=== PATIENT | male | born 1960 | race Caucasian/White ===

== ENCOUNTER 2020-08-16 07:19 | Emergency (ER) | payer OTHER ==
[~2020-08-16] VITALS: Ht 172.7 cm; Wt 81.6 kg
[~2020-08-16 07:19] MED LIST: ASPIRIN EC81 MG PO; HYDROCHLOROTH12.5 MG PO; LASIX40 MG PO; LEVAQUIN750 MG PO; LISINOPRIL10 MG PO; METOPROLOL SUC100 MG PO; OMNICEF 300 MG300 MG PO; TOPROL XL25 MG PO; VASOTEC 5 MG TAB5 MG PO; XARELTO10 MG PO; ZITHROMAX250 MG PO; ZOFRAN ODT 4 MG4 MG SL
[2020-08-16 08:00] LABS: HEMOGLOBIN 15.6 gm/dl (14.0-17.5); RED BLOOD COUNT 4.94 M/UL (4.20-5.50); WHITE BLOOD COUNT 8.8 K/UL (4.5-11.0)
[2020-08-16 08:18] LABS: BUN/CREATININE RATIO 19 (0-10)
== END 2020-08-17 04:45 | disposition left against medical advice (07) ==
LOC: ER1 07:19 → CDU 08:50 → ER1 08:50
PROVIDERS: Emergency Medicine
DX: U07.1 COVID-19 (principal); J12.82 Pneumonia due to coronavirus disease 2019; I11.0 Hypertensive heart disease with heart failure; I50.23 Acute on chronic systolic (congestive) heart failure; I16.0 Hypertensive urgency; I20.9 Angina pectoris, unspecified; I48.91 Unspecified atrial fibrillation; R91.8 Other nonspecific abnormal finding of lung field; F15.11 Other stimulant abuse, in remission; F11.11 Opioid abuse, in remission; F10.11 Alcohol abuse, in remission; M19.90 Unspecified osteoarthritis, unspecified site; F41.9 Anxiety disorder, unspecified; R74.01 Elevation of levels of liver transaminase levels; R79.89 Other specified abnormal findings of blood chemistry; F17.200 Nicotine dependence, unspecified, uncomplicated; Z98.890 Other specified postprocedural states; Z90.49 Acquired absence of other specified parts of digestive tract; Z96.651 Presence of right artificial knee joint; Z79.01 Long term (current) use of anticoagulants; Z87.01 Personal history of pneumonia (recurrent); Z79.899 Other long term (current) drug therapy; Z91.14 Patient's other noncompliance with medication regimen; Z53.20 Procedure and treatment not carried out because of patient's decision for unspecified reasons
CPT/HCPCS: 36415; 71045; 80053; 82550; 82553; 83874; 83880; 84484; 85025; 85610; 86900; 86901; 87040; 93005; 96374; 96375; 99285; J0456; J0696; J1940; J7030; U0002

== ENCOUNTER 2021-01-02 09:30 | Emergency (ER) | payer OTHER ==
[2021-01-02 10:42] LABS: HEMOGLOBIN 16.6 gm/dl (14.0-17.5); RED BLOOD COUNT 5.16 M/UL (4.20-5.50); WHITE BLOOD COUNT 8.4 K/UL (4.5-11.0)
[2021-01-02 12:02] LABS: BUN/CREATININE RATIO 20 (0-10)
== END 2021-01-02 19:51 | disposition home or self-care (01) ==
LOC: ER1 09:30
PROVIDERS: Physician Assistant
DX: I11.0 Hypertensive heart disease with heart failure (principal); I50.9 Heart failure, unspecified; I48.92 Unspecified atrial flutter; I42.9 Cardiomyopathy, unspecified; Z79.01 Long term (current) use of anticoagulants
CPT/HCPCS: 71046; 80053; 82550; 82553; 83690; 83874; 83880; 84484; 85025; 85379; 93005; 96374; 99285; J1940; Q9967

== ENCOUNTER → 2021-01-24 | Outpatient (CLI) | payer OTHER ==
[~2021-01-24] MED LIST changes: +ADULT LOW DOSE81 MG PO; +CARVEDILOL12.5 MG PO; +ZAROXOLYN/DIULO5 MG PO; +ZESTRIL20 MG PO
== END ==
LOC: HEART 5 09:54
DX: I48.91 Unspecified atrial fibrillation (principal); I42.9 Cardiomyopathy, unspecified; I50.22 Chronic systolic (congestive) heart failure; I25.10 Atherosclerotic heart disease of native coronary artery without angina pectoris; I08.1 Rheumatic disorders of both mitral and tricuspid valves; I27.20 Pulmonary hypertension, unspecified
CPT/HCPCS: 93306

== ENCOUNTER 2021-03-30 02:15 | Inpatient (IN) | payer OTHER ==
[~2021-03-30] VITALS: Ht 170.2 cm; Wt 81.6 kg
[~2021-03-30 02:15] MED LIST changes: -ADULT LOW DOSE81 MG PO; -CARVEDILOL12.5 MG PO; -ZAROXOLYN/DIULO5 MG PO; -ZESTRIL20 MG PO
[2021-03-30 02:53] LABS: RED BLOOD COUNT 5.94 M/UL (4.20-5.50); WHITE BLOOD COUNT 15.2 K/UL (4.5-11.0)
[2021-03-30] MEDS ORDERED: ZAROXOLYN/DIULO5 MG PO (13:07)
[2021-03-30] MEDS ORDERED: ADULT LOW DOSE81 MG PO (13:08)
[2021-03-30] MEDS ORDERED: ZESTRIL20 MG PO (13:08)
[2021-03-30] MEDS ORDERED: CARVEDILOL12.5 MG PO (13:08)
== END 2021-03-30 15:00 | disposition left against medical advice (07) | DRG 682 ==
LOC: ER1 02:15 → CDU 06:27
PROVIDERS: Physician Assistant; Student in an Organized Health Care Education/Training Program; ADMIT Internal Medicine
DX: N17.9 Acute kidney failure, unspecified (principal); I21.4 Non-ST elevation (NSTEMI) myocardial infarction; E87.2 Acidosis; I50.22 Chronic systolic (congestive) heart failure; I48.91 Unspecified atrial fibrillation; I25.5 Ischemic cardiomyopathy; Z20.822 Contact with and (suspected) exposure to COVID-19; E86.0 Dehydration; E87.6 Hypokalemia; R94.5 Abnormal results of liver function studies; F19.10 Other psychoactive substance abuse, uncomplicated; I27.20 Pulmonary hypertension, unspecified; I08.1 Rheumatic disorders of both mitral and tricuspid valves; Z96.651 Presence of right artificial knee joint; I11.0 Hypertensive heart disease with heart failure; Z95.1 Presence of aortocoronary bypass graft; Z93.3 Colostomy status; Z91.14 Patient's other noncompliance with medication regimen; Z90.49 Acquired absence of other specified parts of digestive tract; Z98.890 Other specified postprocedural states; Z82.49 Family history of ischemic heart disease and other diseases of the circulatory system; Z81.1 Family history of alcohol abuse and dependence
CPT/HCPCS: 71045; 80048; 80053; 81001; 82436; 82550; 82553; 83605; 83874; 83880; 84133; 84300; 84439; 84443; 84484; 85025; 87040; 93005; 96374; 96375; 99285; G0378; J0456; J0696; J3480; J7030; J7040; J7050; U0002

== ENCOUNTER → 2021-05-18 | Outpatient (CLI) | payer OTHER ==
[~2021-05-18] MED LIST changes: +ADULT LOW DOSE81 MG PO; +CARVEDILOL12.5 MG PO; +CLINDAMYCIN HC300 MG PO; +HYDROCODON-ACE1 EAC4 PO; +LEVOFLOXACIN500 MG PO; +ZAROXOLYN/DIULO5 MG PO; +ZESTRIL20 MG PO
[2021-05-18 13:06] LABS: HEMOGLOBIN 15.6 gm/dl (14.0-17.5); RED BLOOD COUNT 4.99 M/UL (4.20-5.50)
[2021-05-18 13:26] LABS: BUN/CREATININE RATIO 21 (0-10)
== END ==
LOC: LAB 12:03
PROVIDERS: Internal Medicine Cardiovascular Disease
DX: I11.0 Hypertensive heart disease with heart failure (principal); I42.0 Dilated cardiomyopathy; I50.22 Chronic systolic (congestive) heart failure; I25.10 Atherosclerotic heart disease of native coronary artery without angina pectoris
CPT/HCPCS: 36415; 80048; 85025

== ENCOUNTER 2021-05-19 07:05 | Outpatient (CLI) | payer OTHER ==
[~2021-05-19] VITALS: Ht 170.2 cm; Wt 82.1 kg
[~2021-05-19 07:05] MED LIST changes: -CLINDAMYCIN HC300 MG PO; -HYDROCODON-ACE1 EAC4 PO; -LEVOFLOXACIN500 MG PO
[2021-05-19] MEDS ORDERED: LASIX40 MG PO (08:07)
[2021-05-19] MEDS ORDERED: HYDROCODON-ACE1 EAC4 PO (12:11)
[2021-05-19] MEDS ORDERED: LEVOFLOXACIN500 MG PO (12:11)
[2021-05-19] MEDS ORDERED: CLINDAMYCIN HC300 MG PO ×2 (12:11→12:46)
== END 2021-05-20 13:32 | disposition home or self-care (01) ==
LOC: CATH 07:05 → MED SURG 4 12:52 → CATH 05-20 13:32
DX: I42.0 Dilated cardiomyopathy (principal); I25.10 Atherosclerotic heart disease of native coronary artery without angina pectoris; I11.0 Hypertensive heart disease with heart failure; I50.22 Chronic systolic (congestive) heart failure; I44.7 Left bundle-branch block, unspecified; Z79.899 Other long term (current) drug therapy; Z79.82 Long term (current) use of aspirin; Z86.16 Personal history of COVID-19
CPT/HCPCS: 33225; 33249; 93005; 99152; 99153; C1769; C1777; C1882; C1898; C1900; J0690; J1644; J2250; J3010; J3370; J3480; J7040; Q9965

== ENCOUNTER → 2021-05-26 | Outpatient (CLI) | payer OTHER ==
[~2021-05-26] VITALS: Ht 172.7 cm; Wt 81.6 kg
[~2021-05-26] MED LIST changes: +CLINDAMYCIN HC300 MG PO; +HYDROCODON-ACE1 EAC4 PO; +LEVOFLOXACIN500 MG PO
== END ==
LOC: OPSV 07:00
DX: L03.818 Cellulitis of other sites (principal)
CPT/HCPCS: 96365; 96366; 96367; C1751; J0878; J3370; J7050; J7070

== ENCOUNTER → 2021-05-27 | Outpatient (CLI) | payer OTHER ==
[~2021-05-27] VITALS: Ht 172.7 cm; Wt 81.6 kg
== END ==
LOC: OPSV 06:51
DX: L03.818 Cellulitis of other sites (principal)
CPT/HCPCS: 96365; 96366; 96367; J0878; J3370; J7050

== ENCOUNTER → 2021-05-28 | Outpatient (CLI) | payer OTHER ==
[~2021-05-28] VITALS: Ht 172.7 cm; Wt 81.6 kg
== END ==
LOC: OPSV 06:48
DX: L03.818 Cellulitis of other sites (principal)
CPT/HCPCS: 96365; 96366; 96367; J0878; J3370; J7050

== ENCOUNTER → 2021-05-29 | Outpatient (CLI) | payer OTHER ==
[~2021-05-29] VITALS: Ht 172.7 cm; Wt 81.6 kg
== END ==
LOC: OPSV 07:24
DX: L03.818 Cellulitis of other sites (principal)
CPT/HCPCS: 96365; 96366; 96367; J0878; J3370; J7050

== ENCOUNTER → 2021-05-30 | Outpatient (CLI) | payer OTHER ==
[~2021-05-30] VITALS: Ht 172.7 cm; Wt 81.6 kg
== END ==
LOC: OPSV 08:20
DX: L03.818 Cellulitis of other sites (principal)
CPT/HCPCS: 96365; 96366; 96367; J0878; J3370; J7050

== ENCOUNTER → 2021-05-31 | Outpatient (CLI) | payer OTHER ==
[~2021-05-31] VITALS: Ht 172.7 cm; Wt 81.6 kg
== END ==
LOC: OPSV 09:07
DX: L03.818 Cellulitis of other sites (principal); I42.0 Dilated cardiomyopathy; I48.91 Unspecified atrial fibrillation; I48.92 Unspecified atrial flutter; I11.0 Hypertensive heart disease with heart failure; I50.22 Chronic systolic (congestive) heart failure; I25.10 Atherosclerotic heart disease of native coronary artery without angina pectoris; F41.9 Anxiety disorder, unspecified; M06.9 Rheumatoid arthritis, unspecified; I25.2 Old myocardial infarction; Z95.810 Presence of automatic (implantable) cardiac defibrillator
CPT/HCPCS: 96365; 96366; 96367; J0878; J3370; J7050

== ENCOUNTER → 2021-06-01 | Outpatient (CLI) | payer OTHER ==
[~2021-06-01] VITALS: Ht 172.7 cm; Wt 81.6 kg
== END ==
LOC: OPSV 08:16
DX: L03.818 Cellulitis of other sites (principal)
CPT/HCPCS: 96365; 96366; 96367; J0878; J3370; J7050

== ENCOUNTER → 2021-10-23 | Outpatient (CLI) | payer OTHER ==
[~2021-10-23] MED LIST changes: +ZESTRIL2.5 MG PO; -ZESTRIL20 MG PO
[2021-10-23 09:04] LABS: HEMOGLOBIN 16.1 gm/dl (14.0-17.5); RED BLOOD COUNT 5.08 M/UL (4.20-5.50); WHITE BLOOD COUNT 8.6 K/UL (4.5-11.0)
== END ==
LOC: EDSTATUS 08:00 → OPSV2 08:00
PROVIDERS: Orthopaedic Surgery
DX: Z01.818 Encounter for other preprocedural examination (principal); M16.11 Unilateral primary osteoarthritis, right hip
CPT/HCPCS: 36415; 80048; 85027; 93005

== ENCOUNTER → 2021-10-30 | Outpatient (CLI) | payer OTHER ==
[2021-10-30 16:19] LABS: BUN/CREATININE RATIO 19 (0-10)
== END ==
LOC: LAB 15:24
DX: N18.9 Chronic kidney disease, unspecified (principal); R94.5 Abnormal results of liver function studies
CPT/HCPCS: 36415; 80053

== ENCOUNTER → 2021-11-28 | Outpatient (CLI) | payer OTHER ==
[~2021-11-28] MED LIST changes: +METOPROLOL SUCC50 MG PO; +VOLTAREN EC 7575 MG PO
[2021-11-28 09:20] LABS: HEMOGLOBIN 15.9 gm/dl (14.0-17.5); RED BLOOD COUNT 4.78 M/UL (4.20-5.50); WHITE BLOOD COUNT 7.6 K/UL (4.5-11.0)
== END ==
LOC: OPSV2 08:30 → EDSTATUS 08:30 → OPSV2 08:32
PROVIDERS: Orthopaedic Surgery
DX: Z01.812 Encounter for preprocedural laboratory examination (principal); M16.11 Unilateral primary osteoarthritis, right hip
CPT/HCPCS: 36415; 80048; 85027; 85652; 86140

== ENCOUNTER → 2021-12-11 | Outpatient (CLI) | payer OTHER ==
[~2021-12-11] MED LIST changes: +ELIQUIS 2.5 MG2.5 MG PO
== END ==
LOC: LAB 09:43
PROVIDERS: Orthopaedic Surgery
DX: Z01.812 Encounter for preprocedural laboratory examination (principal); M16.11 Unilateral primary osteoarthritis, right hip; I10 Essential (primary) hypertension; I25.10 Atherosclerotic heart disease of native coronary artery without angina pectoris
CPT/HCPCS: 36415; 80048; 86850; 86900; 86901

== ENCOUNTER 2021-12-12 07:00 | Day surgery (SDC) | payer OTHER ==
[~2021-12-12] VITALS: Ht 170.2 cm; Wt 88.9 kg
[~2021-12-12 07:00] MED LIST changes: -ELIQUIS 2.5 MG2.5 MG PO
[2021-12-13 03:26] LABS: RED BLOOD COUNT 3.34 M/UL (4.20-5.50); WHITE BLOOD COUNT 15.8 K/UL (4.5-11.0)
[2021-12-13] MEDS ORDERED: ELIQUIS 2.5 MG2.5 MG PO (08:49)
[2021-12-14 03:31] LABS: HEMOGLOBIN 9.4 gm/dl (14.0-17.5)
[2021-12-14 03:50] LABS: RED BLOOD COUNT 2.85 M/UL (4.20-5.50); WHITE BLOOD COUNT 9.8 K/UL (4.5-11.0)
== END 2021-12-14 20:00 | disposition home or self-care (01) ==
LOC: OR 07:00 → M/S 19:47 → OR 12-14 20:00
PROVIDERS: Orthopaedic Surgery
DX: M16.11 Unilateral primary osteoarthritis, right hip (principal); M88.851 Osteitis deformans of right thigh; E87.6 Hypokalemia; I11.0 Hypertensive heart disease with heart failure; I50.22 Chronic systolic (congestive) heart failure; F11.11 Opioid abuse, in remission; F15.11 Other stimulant abuse, in remission; F10.11 Alcohol abuse, in remission; I48.92 Unspecified atrial flutter; I48.91 Unspecified atrial fibrillation; I42.0 Dilated cardiomyopathy; I27.20 Pulmonary hypertension, unspecified; F41.9 Anxiety disorder, unspecified; Z95.810 Presence of automatic (implantable) cardiac defibrillator; Z79.82 Long term (current) use of aspirin; Z86.16 Personal history of COVID-19
CPT/HCPCS: 36415; 73501; 73502; 76000; 80048; 83735; 84132; 85027; 97110-GP-CQ; 97116; 97116-GP-CQ; 97161; 97166; 97535; C1713; C1776; J0690; J2270; J2274; J7030; J7050; J7120

== ENCOUNTER 2022-01-10 15:43 | Observation (INO) | payer OTHER ==
[~2022-01-10] VITALS: Ht 170.2 cm; Wt 90.7 kg
[~2022-01-10 15:43] MED LIST changes: +ELIQUIS 2.5 MG2.5 MG PO
[2022-01-10 16:20] LABS: HEMOGLOBIN 13.5 gm/dl (14.0-17.5); RED BLOOD COUNT 4.23 M/UL (4.20-5.50); WHITE BLOOD COUNT 2.6 K/UL (4.5-11.0)
[2022-01-10 17:03] LABS: BUN/CREATININE RATIO 18 (0-10)
[2022-01-10 19:01] LABS: BORDETELLA PARAPERTUSSIS Not Detected (Not Detectd); BORDETELLA PERTUSSIS Not Detected (Not Detectd); CHLAMYDIA PNEUMONIAE Not Detected (Not Detectd); CORONAVIRUS HKU1 Not Detected (Not Detectd); CORONAVIRUS NL63 Not Detected (Not Detectd); CORONAVIRUS OC43 Not Detected (Not Detectd); CORONOAVIRUS 229E Not Detected (Not Detectd); HUMAN METAPNEUMOVIRUS Not Detected (Not Detectd); MYCOPLASMA PNEUMONIAE Not Detected (Not Detectd); PARAINFLUENZA VIRUS 1 Not Detected (Not Detectd); PARAINFLUENZA VIRUS 2 Not Detected (Not Detectd); PARAINFLUENZA VIRUS 3 Not Detected (Not Detectd); PARAINFLUENZA VIRUS 4 Not Detected (Not Detectd); RESPIRATORY SYNCYTIAL VIRUS Not Detected (Not Detectd)
[2022-01-10 19:56] LABS: HUMAN RHINOVIRUS/ENTEROVIRUS DETECTED (Not Detectd)
[2022-01-11 07:18] LABS: HEMOGLOBIN 12.1 gm/dl (14.0-17.5); RED BLOOD COUNT 3.87 M/UL (4.20-5.50)
[2022-01-11 07:20] LABS: WHITE BLOOD COUNT 1.9 K/UL (4.5-11.0)
[2022-01-12 08:14] LABS: HBSAG SCREEN Negative (Negative); HCV AB <0.1 (0.0-0.9); HEP A AB, IGM Negative (Negative); HEP B CORE AB, IGM Negative (Negative)
== END 2022-01-11 20:35 | disposition left against medical advice (07) ==
LOC: ER1 15:43 → CDU 22:26 → MED SURG 4 22:26
PROVIDERS: Internal Medicine; Physician Assistant; ADMIT Internal Medicine
DX: B34.9 Viral infection, unspecified (principal); N17.9 Acute kidney failure, unspecified; E86.0 Dehydration; I11.0 Hypertensive heart disease with heart failure; I50.22 Chronic systolic (congestive) heart failure; I42.0 Dilated cardiomyopathy; I48.20 Chronic atrial fibrillation, unspecified; E87.1 Hypo-osmolality and hyponatremia; E87.6 Hypokalemia; E80.6 Other disorders of bilirubin metabolism; D72.819 Decreased white blood cell count, unspecified; R74.01 Elevation of levels of liver transaminase levels; Z53.29 Procedure and treatment not carried out because of patient's decision for other reasons; Z20.822 Contact with and (suspected) exposure to COVID-19; Z95.810 Presence of automatic (implantable) cardiac defibrillator
CPT/HCPCS: 0240U; 36415; 70450; 71045; 71250; 80053; 80074; 81001; 82550; 82553; 83605; 84484; 85025; 87040; 87633; 93005; 96361; 96374; 96375; 99285; G0378; J1200; J2765; J3480

== ENCOUNTER 2022-01-23 11:14 | Observation (INO) | payer OTHER ==
[~2022-01-23] VITALS: Ht 170.2 cm; Wt 89.8 kg
[2022-01-23 11:34] LABS: HEMOGLOBIN 13.5 gm/dl (14.0-17.5); RED BLOOD COUNT 4.23 M/UL (4.20-5.50); WHITE BLOOD COUNT 15.3 K/UL (4.5-11.0)
[2022-01-23] MEDS ORDERED: HYDROCODON-ACE1 EAC6 PO (15:40)
[2022-01-23] MEDS ORDERED: CYCLOBENZAPRINE10 MG PO (15:40)
[2022-01-24 02:18] LABS: WHITE BLOOD COUNT 8.8 K/UL (4.5-11.0)
[2022-01-24 02:19] LABS: RED BLOOD COUNT 3.47 M/UL (4.20-5.50)
[2022-01-24 02:20] LABS: HEMOGLOBIN 10.9 gm/dl (14.0-17.5)
[2022-01-24] MEDS ORDERED: CARVEDILOL3.125 MG PO (12:12)
== END 2022-01-24 12:37 | disposition home or self-care (01) ==
LOC: ER1 11:14 → PROG CARE 14:29 → CDU 14:29 → PROG CARE 16:44
PROVIDERS: Emergency Medicine; Physician Assistant Medical; ADMIT Internal Medicine
DX: R06.02 Shortness of breath (principal); I42.8 Other cardiomyopathies; I48.92 Unspecified atrial flutter; I95.89 Other hypotension; I11.0 Hypertensive heart disease with heart failure; I50.22 Chronic systolic (congestive) heart failure; I47.2 Ventricular tachycardia; I25.10 Atherosclerotic heart disease of native coronary artery without angina pectoris; D53.9 Nutritional anemia, unspecified; E83.42 Hypomagnesemia; E87.6 Hypokalemia; J44.9 Chronic obstructive pulmonary disease, unspecified; F15.10 Other stimulant abuse, uncomplicated; Z79.82 Long term (current) use of aspirin; Z79.899 Other long term (current) drug therapy
CPT/HCPCS: 36415; 71045; 80048; 80053; 82550; 82553; 83605; 83735; 83880; 84439; 84443; 84484; 85025; 85027; 85610; 85730; 93005; 96374; 99285; G0378